=== PATIENT | female | born 1990 ===

== ENCOUNTER 2018-12-24 08:00 | Inpatient (IN) ==
[2018-12-24] MEDS ORDERED: Naloxone 0.4 MG/ML INJ IVP PRN ×2 (08:22→19:20)
[2018-12-24] MEDS ORDERED: *HR* Nalbuphine 10 MG/ML AMPUL IVP PRN (08:22)
[2018-12-24] MEDS ORDERED: Metoclopramide 10 MG/2 ML VIAL IVP PRN (08:22)
[2018-12-24] MEDS ORDERED: Famotidine 20 MG/2 ML VIAL IVP PRN (08:22)
[2018-12-24] MEDS ORDERED: Ringers Solution, Lactated 1,000 ML IVC SCH (08:30)
[2018-12-24] MEDS ORDERED: miSOPROStol 25 MCG TABLET PO ONE (08:45)
[2018-12-24] MEDS ORDERED: Penicillin G Potassium 5,000,000 UNIT in 0.9 % Sodium Chloride Mini Bag 100 ML IVPB ONE (09:15)
[2018-12-24 09:22] LABS: Basophils % 0.4 %; Eosinophils # 0.1 K/mcL (0.0-0.6); Eosinophils % 1.1 %; Hematocrit 40.7 % (35.3-44.9); Hemoglobin 14.2 g/dL (11.5-15.4); Immature Granulocytes % 0.7 % (0-4); Lymphocytes # 1.4 K/mcL (0.6-4.6); Lymphocytes % 12.5 %; Mean Corpuscular HGB Conc 34.9 g/dL (31.6-35.5); Mean Corpuscular Hemoglobin 30.2 pg (28.0-33.3); Mean Corpuscular Volume 86.6 fL (83.0-100.0); Mean Platelet Volume 10.4 fL (9.4-12.4); Monocytes # 0.6 K/mcL (0.0-1.3); Monocytes % 5.3 %; Neutrophils # 8.8 K/mcL (1.6-8.9); Platelet Count 263 K/mcL (140-400); Red Cell Distribution Width 13.5 % (11.5-14.5)
[2018-12-24 09:30] LABS: Amphetamine Screen,Urine Negative ng/mL (Cutoff=1000); Barbiturate Screen,Urine Negative ng/mL (Cutoff=200); Benzodiazepines Screen,Urine Negative ng/mL (Cutoff=200); Cannabinoid Screen,Urine Negative ng/mL (Cutoff = 50); Cocaine Screen,Urine Negative ng/mL (Cutoff= 300); Opiate Screen,Urine Negative ng/mL (Cutoff=300); Phencyclidine Screen,Urine Negative ng/mL (Cutoff=25)
[2018-12-24] MEDS ORDERED: miSOPROStol 25 MCG TABLET PO STA (13:50)
[2018-12-24] MEDS: Penicillin G Potassium 2,500,000 UNIT in 0.9 % Sodium Chloride 100 ML IVPB SCH ×2 (14:07→18:19)
[2018-12-24] MEDS ORDERED: Oxytocin 20 units/ LR 1000 mL 20 UNIT/1,000 ML BAG IVC SCH (17:15)
[2018-12-24] MEDS ORDERED: Ropivacaine/PF 0.2% 20 ML VIAL EP ONE (19:20)
[2018-12-24] MEDS ORDERED: *HR* FentaNYL (PF) 100 MCG/2 ML VIAL EP ONE (19:20)
[2018-12-24] MEDS ORDERED: EPHEDrine 50 MG/ML VIAL IVP PRN (19:20)
[2018-12-24] MEDS ORDERED: Ondansetron 4 MG/2 ML VIAL IVP PRN (19:20)
[2018-12-24] MEDS: Epidural Premix (fent/bupiv) 110 ML EP SCH (19:30)
[2018-12-25] MEDS: Ondansetron 4 MG/2 ML VIAL IVP SCH ×2 (04:32→09:32)
[2018-12-25] MEDS: Penicillin G Potassium 2,500,000 UNIT in 0.9 % Sodium Chloride 100 ML IVPB SCH ×4 (07:16→21:12)
[2018-12-25] MEDS: Epidural Premix (fent/bupiv) 110 ML EP SCH ×2 (11:18→19:52)
[2018-12-25] MEDS ORDERED: Lidocaine -MPF 2% 5 ML VIAL ONE (21:10)
[2018-12-25] MEDS ORDERED: Chloroprocaine/PF 20 ML VIAL INFILT ONE (23:48)
[2018-12-25] MEDS ORDERED: *HR* Phenylephrine 10 MG/ML VIAL ONE (23:54)
[2018-12-25] MEDS ORDERED: *HR* Oxytocin 10 UNIT/ML VIAL IM ONE (23:58)
[2018-12-26] MEDS ORDERED: Ringers Solution, Lactated 1,000 ML ONE (00:17)
[2018-12-26] MEDS ORDERED: Ondansetron 4 MG/2 ML VIAL ONE (00:17)
[2018-12-26] MEDS ORDERED: *HR* Morphine Sulfate/PF 10 MG/10 ML AMPUL ONE (00:22)
[2018-12-26] MEDS ORDERED: Acetaminophen IV 1,000 MG/100 ML INFUS..BTL IVPB ONE (00:32)
[2018-12-26] MEDS ORDERED: *HR* OxyCODONE Immed Rel 5 MG TABLET PO PRN (00:32)
[2018-12-26] MEDS ORDERED: *HR* HYDROmorphone (PF) 1 MG/ML SYRINGE IVP PRN (00:32)
[2018-12-26] MEDS ORDERED: Metoclopramide 10 MG/2 ML VIAL IVP PRN (03:33)
[2018-12-26] MEDS ORDERED: Simethicone 80 MG TAB.CHEW PO PRN (03:33)
[2018-12-26] MEDS ORDERED: Acetaminophen 325 MG TABLET PO PRN (03:33)
[2018-12-26] MEDS ORDERED: Rho Immune Globulin 1,500 UNIT SYRINGE IM ONE (03:33)
[2018-12-26] MEDS ORDERED: Oxytocin 20 units/ LR 1000 mL 20 UNIT/1,000 ML BAG IVC SCH (03:33)
[2018-12-26] MEDS ORDERED: Ondansetron 4 MG/2 ML VIAL IVP PRN (03:33)
[2018-12-26] MEDS ORDERED: Sennosides 8.6 MG TABLET PO PRN (03:33)
[2018-12-26 06:36] LABS: Basophils % 0.3 %; Eosinophils % 0.3 %; Hematocrit 33.2 % (35.3-44.9); Immature Granulocytes % 0.7 % (0-4); Lymphocytes # 1.1 K/mcL (0.6-4.6); Lymphocytes % 8.4 %; Mean Corpuscular HGB Conc 33.4 g/dL (31.6-35.5); Mean Corpuscular Hemoglobin 30.4 pg (28.0-33.3); Mean Platelet Volume 10.5 fL (9.4-12.4); Neutrophils # 11.3 K/mcL (1.6-8.9); Platelet Count 207 K/mcL (140-400); Red Blood Count 3.65 M/mcL (3.82-4.97); Red Cell Distribution Width 13.7 % (11.5-14.5); Segmented Neutrophils % 83.3 %; White Blood Count 13.6 K/mcL (4.3-11.1)
[2018-12-26 06:38] LABS: Hemoglobin 11.1 g/dL (11.5-15.4)
[2018-12-26] MEDS: Prenatal Vit/FA 1 EACH TABLET PO SCH (08:24)
[2018-12-26] MEDS: *HR* OxyCODONE/APAP 5/325 TABLET PO PRN ×2 (08:26→12:30)
[2018-12-27] MEDS: Ibuprofen 600 MG TABLET PO PRN ×2 (00:18→07:35)
[2018-12-27] MEDS: Prenatal Vit/FA 1 EACH TABLET PO SCH (07:35)
[2018-12-27 08:01] VITALS: BP 133/76
== END 2018-12-27 12:33 | disposition home or self-care (01) | DRG 788 ==
LOC: 1NENULAB 08:16 → 1NENUOBS 12-26 03:32
PROVIDERS: ADMIT Advanced Practice Midwife; ATTEND Advanced Practice Midwife